=== PATIENT | male | born 1995 | race Caucasian/White ===

== ENCOUNTER 2019-08-08 01:30 | Outpatient (CLI) | payer OTHER | END 2019-08-08 01:31 | disposition short-term general hospital (02) | LOC: EMS 01:30 | PROVIDERS: ATTEND Surgery | DX: R07.89 Other chest pain (principal) | CPT/HCPCS: A0425; A0433 ==

== ENCOUNTER 2019-09-26 17:22 | Emergency (ER) | payer OTHER ==
--- NOTE | 2019-09-26 19:29 | ED Physician Documentation ---
PD HPI URI - Stated complaint Stated Complaint: DEHYDRATION - Chief complaint Chief Complaint: Fever - History obtained from History obtained from: Patient - History of Present Illness Timing - onset: How many days ago (3-4) Timing duration: Days (3-4) Timing details: Gradual onset, Still present Associated symptoms: Fever, Chills, Sore throat, Swollen nodes, NVD (nausea and vomiting without diarrhea.). No: Nasal congestion, Dry cough Contributing factors: No: Sick contact, Travel, Immunocompromised Similar symptoms before: Has not had sx before Recently seen: Clinic (went to walk in clinic and had negative strep test, but seemed ill, fever and tachycardic, so told to go to ER for "IV fluids and meds".) Review of Systems Constitutional: reports: Fever, Chills, Myalgias Nose: denies: Rhinorrhea / runny nose, Congestion Throat: reports: Sore throat, Swollen tonsils Cardiac: denies: Chest pain / pressure Respiratory: denies: Dyspnea, Cough GI: reports: Nausea, Vomiting. denies: Abdominal Pain, Diarrhea Skin: denies: Rash Neurologic: reports: Generalized weakness. denies: Headache PD PAST MEDICAL HISTORY - Past Medical History Past Medical History: No - Past Surgical History Past Surgical History: No - Present Medications Home Medications: Ambulatory Orders Medication Instructions Recorded Confirmed Cephalexin [Keflex] 500 mg PO TID #20 capsule 09/26/19 Hydrocodone/Acetaminophen 1 each PO Q6H PRN #10 tablet 09/26/19 [Hydrocodon-Acetaminophen 5-325] Lidocaine Viscous 2% [Xylocaine 5 ml PO Q4H PRN #100 ml 09/26/19 Viscous 2%] Ondansetron Odt [Zofran] 4 mg TL Q6H PRN #10 tablet 09/26/19 dexAMETHasone [Decadron] 4 mg PO DAILY #5 tablet 09/26/19 - Allergies Allergies/Adverse Reactions: Allergies Allergy/AdvReac Type Severity Reaction Status Date / Time No Known Drug Allergies Allergy Verified 09/26/19 17:38 - Social History Does the pt smoke?: No Smoking Status: Never smoker Does the pt drink ETOH?: No Does the pt have substance abuse?: No - Immunizations Immunizations are current?: Yes - POLST Patient has POLST: No PD ED PE NORMAL - Vitals Vital signs reviewed: Yes (tachycardic and high fever) - General General: Alert and oriented X 3, Well developed/nourished - HEENT HEENT: Ears normal, Dentition benign. No: Moist mucous membranes, Pharynx benign (redness with exudate at tonsils, more to the left, with some left peritonsillar edema, no bulging and without fluctant feeling. ) - Neck Neck: Supple, no meningeal sign, Other (anterior tender adenopathy) - Cardiac Cardiac: No murmur. No: RRR (tachycardic) - Respiratory Respiratory: Clear bilaterally - Abdomen Abdomen: Soft, Non tender, No organomegaly - Derm Derm: Normal color, Warm and dry - Neuro Neuro: Alert and oriented X 3, No motor deficit, Normal speech Results - Vitals Vitals: Vital Signs - 24 hr 09/26/19 09/26/19 17:35 21:39 Temperature 39.2 C H 37.8 C H Heart Rate 116 H 94 Respiratory 18 18 Rate Blood Pressure 121/60 128/55 L O2 Saturation 98 96 Oxygen O2 Source Room air PD MEDICAL DECISION MAKING - ED course Complexity details: re-evaluated patient (feeling much better after fluids and meds. Able to swallow okay. Feels swelling is decreased. ), considered differential (reported negative strep test this afternoon at walk in clinic. However clinically has peritonsillitis with redness/swelling/exudate, so will treat with IV fluids/steroids/abx. ), d/w patient Departure - Departure Disposition: 01 Home, Self Care Clinical Impression: Dehydration, Peritonsillitis Nausea and vomiting Qualifiers: Vomiting type: unspecified Vomiting Intractability: non-intractable Qualified Code(s): R11.2 - Nausea with vomiting, unspecified Pharyngitis Qualifiers: Pharyngitis/tonsillitis etiology: unspecified etiology Qualified Code(s): J02.9 - Acute pharyngitis, unspecified Condition: Stable Record reviewed to determine appropriate education?: Yes Instructions: ED Nausea Vomiting Prescriptions: Cephalexin [Keflex] 500 mg PO TID #20 capsule dexAMETHasone [Decadron] 4 mg PO DAILY #5 tablet Hydrocodone/Acetaminophen [Hydrocodon-Acetaminophen 5-325] 1 each PO Q6H PRN #10 tablet PRN Reason: pain Lidocaine Viscous 2% [Xylocaine Viscous 2%] 5 ml PO Q4H PRN #100 ml PRN Reason: Pain Ondansetron Odt [Zofran] 4 mg TL Q6H PRN #10 tablet PRN Reason: Nausea / Vomiting Comments: Tylenol or ibuprofen for fevers and pains. Stay well-hydrated. Add hydrocodone if needed for worse pain. Ondansetron if needed for nausea. Decadron steroid for inflammation daily for 5 more days. Cephalexin antibiotic as directed for a week as the throat looks more like a bacterial infection. Recheck if not improving well over the next day or 2 and return sooner if worse. Forms: Activity restrictions Discharge Date/Time: 09/26/19 21:51
[2019-09-26] MEDS ORDERED: SODIUM CHLORIDE 0.9% 1,000 ML IV ONE ×2 (19:41→19:42)
[2019-09-26] MEDS ORDERED: KETOROLAC 30 MG/ML VIAL IVP STA (19:42)
[2019-09-26] MEDS ORDERED: MAG HYDROX/AL HYDROX/SIMETH 30 ML UDC PO STA (19:42)
[2019-09-26] MEDS ORDERED: ONDANSETRON 4 MG/2 ML VIAL IVP STA (19:42)
[2019-09-26] MEDS ORDERED: LIDOCAINE VISCOUS 2% 15 ML UDC MM STA (19:42)
[2019-09-26] MEDS ORDERED: DEXAMETHASONE 10 MG/ML VIAL IVP STA (19:42)
[2019-09-26] MEDS ORDERED: ACETAMINOPHEN 325 MG TABLET PO STA (19:43)
[2019-09-26] MEDS ORDERED: ONDANSETRON ODT 4 MG Prepack 2 TL PRN (20:56)
[2019-09-26 21:40] VITALS: BP 128/55
== END 2019-09-26 21:51 | disposition home or self-care (01) ==
LOC: ED 17:22
DX: J02.9 Acute pharyngitis, unspecified (principal); E86.0 Dehydration; R11.2 Nausea with vomiting, unspecified
CPT/HCPCS: 96361; 96374; 99284; A9270

== ENCOUNTER 2019-10-30 14:43 | Emergency (ER) | payer OTHER ==
[2019-10-30] MEDS ORDERED: SUMAtriptan 6 MG/0.5 ML VIAL SUBQ STA (15:56)
--- NOTE | 2019-10-30 16:01 | ED Physician Documentation ---
History of Present Illness - Stated complaint Stated Complaint: SINGH - Chief complaint Chief Complaint: Neuro - History obtained from History obtained from: Patient - History of Present Illness Pain level max: 6 Pain level now: 4 - Additonal information Additional information: 24-year-old male states that for the past 2 months, he has had intermittent headaches. He states that he was seen at [facility] and had a negative head CT. No fevers. No chills. No vomiting. No focal neurological deficits. No vision changes. Normally improves with Motrin. [place] told him to come to the emergency department. His doctor did not call the emergency department, nor was any paper work sent with the patient. Headache is worse with light and sound. Review of Systems Ten Systems: 10 systems reviewed and negative Constitutional: denies: Fever, Chills Nose: denies: Rhinorrhea / runny nose, Congestion GI: denies: Vomiting Skin: denies: Rash Musculoskeletal: denies: Neck pain, Back pain Neurologic: denies: Focal weakness, Numbness, Confused, Altered mental status PD PAST MEDICAL HISTORY - Past Medical History Past Medical History: Yes Cardiovascular: Other Respiratory: None Endocrine/Autoimmune: None GI: None : None HEENT: None Psych: None Musculoskeletal: None Derm: None Other Past Medical History: pericarditis 08/05 - Past Surgical History Past Surgical History: No - Present Medications Home Medications: Ambulatory Orders Medication Instructions Recorded Confirmed Cephalexin [Keflex] 500 mg PO TID #20 capsule 09/26/19 Hydrocodone/Acetaminophen 1 each PO Q6H PRN #10 tablet 09/26/19 [Hydrocodon-Acetaminophen 5-325] Lidocaine Viscous 2% [Xylocaine 5 ml PO Q4H PRN #100 ml 09/26/19 Viscous 2%] Ondansetron Odt [Zofran] 4 mg TL Q6H PRN #10 tablet 09/26/19 dexAMETHasone [Decadron] 4 mg PO DAILY #5 tablet 09/26/19 SUMAtriptan [Imitrex] 25 mg PO ONCE PRN #9 tablet 10/30/19 - Allergies Allergies/Adverse Reactions: Allergies Allergy/AdvReac Type Severity Reaction Status Date / Time No Known Drug Allergies Allergy Verified 10/30/19 14:50 - Social History Does the pt smoke?: No Smoking Status: Never smoker Does the pt drink ETOH?: No Does the pt have substance abuse?: No - Immunizations Immunizations are current?: Yes - POLST Patient has POLST: No PD ED PE NORMAL - Vitals Vital signs reviewed: Yes - General General: Alert and oriented X 3, No acute distress - HEENT HEENT: Atraumatic, PERRL, EOMI, Ears normal, Moist mucous membranes, Pharynx benign - Neck Neck: Supple, no meningeal sign - Cardiac Cardiac: RRR, Strong equal pulses - Respiratory Respiratory: No respiratory distress, Clear bilaterally - Abdomen Abdomen: Soft, Non tender, Non distended - Derm Derm: Warm and dry - Extremities Extremities: No edema - Neuro Neuro: Alert and oriented X 3, laser cutter 2-12 intact, No motor deficit, No sensory deficit, Normal speech, Other (Normal cerebellar test) Eye Opening: Spontaneous Motor: Obeys Commands Verbal: Oriented GCS Score: 15 - Psych Psych: Normal mood, Normal affect Results - Vitals Vitals: Vital Signs - 24 hr 10/30/19 10/30/19 10/30/19 14:50 16:21 16:48 Temperature 36.4 C L Heart Rate 73 77 70 Respiratory 16 13 15 Rate Blood Pressure 107/64 121/75 O2 Saturation 99 100 100 Oxygen O2 Source Room air PD MEDICAL DECISION MAKING - ED course Complexity details: reviewed results, re-evaluated patient, considered differential, d/w patient ED course: Patient with intermittent headaches for the past 2 months[address] Has had a CT scan at [facility]. I tried multiple times to get a hold of his primary care provider to determine why he was sent to the emergency department today. There was no call back received from the clinics, or the [employer] [place]. Multiple different numbers called. He has no paperwork with him to explain why he was se nt to the emergency department. We will prescribe Imitrex for home and have him follow-up with his doctor. Patient counseled regarding signs and symptoms for which I believe and urgent re-evaluation would be necessary. Patient with good understanding of and agreement to plan and is comfortable going home at this time This document was made in part using voice recognition software. While efforts are made to proofread this document, sound alike and grammatical errors may occur. Departure - Departure Disposition: 01 Home, Self Care Clinical Impression: Headache Qualifiers: Headache type: unspecified Headache chronicity pattern: acute headache Intractability: not intractable Qualified Code(s): R51 - Headache Condition: Good Instructions: ED Cephalgia Unspecified Follow-Up: SANJUANITA PALAFOX MD [Primary Care Provider] - Tomorrow Prescriptions: SUMAtriptan [Imitrex] 25 mg PO ONCE PRN #9 tablet PRN Reason: headache Comments: Follow up with your doctor for further care. They may want to order an MRI of your head and or a neurology consult for your headaches. Discharge Date/Time: 10/30/19 16:56
[2019-10-30] MEDS ORDERED: SUMAtriptan 25 MG TABLET PO STA (16:14)
[2019-10-30 16:48] VITALS: BP 121/75
== END 2019-10-30 16:56 | disposition home or self-care (01) ==
LOC: ED 14:43
DX: R51 Headache (principal)
CPT/HCPCS: 99283; 99284; A9270; 80053; 83690; 85025

== ENCOUNTER 2020-07-23 13:54 | Outpatient (CLI) | payer OTHER ==
--- NOTE | 2020-07-23 16:54 | SLEEP CARE CONSULTATION ---
Information from patient questionnaire entered by Cristela Crowder. I have reviewed and concur with the information entered by Cristela Crowder. This document represents the service I personally performed and the decisions made by me, Priti Awad MD, [facility]. History of Present Illness Service Date and Time: 07/23/2020 1354 Reason for Visit: New patient Chief Complaint: reports: Insomnia, Unrefreshed sleep, Snoring, Excessive daytime sleepiness, Observed pauses in breathing, Fatigue, Frequent awakenings at night Date of Onset: 1 YEAR Usual bedtime: 2129 Time it takes to fall asleep: 5.5 hours Snores at night: Yes (sometimes) Number of times waking at night: a lot Reasons for waking at night: reports: Gasping for air Toss, Turn, or Twitch while sleeping: Yes Recalls having dreams: Yes Usually gets out of bed at: 0630 or oversleep Feels refreshed in the morning: No Morning headache: Yes Sleepy or fatigued during the day: Yes Ever fallen asleep while driving: No Takes day naps: Yes Dreams during day naps: No Prior sleep studies: Yes Year and Where: [place], [place] Additional HPI information: I had the pleasure of seeing Mr. Washburn today regarding the possibility of him having a sleep disorder. As you know, he is a 24-year-old gentleman who complains of insomnia for at least 1 year. The patient tells me that he normally goes to bed around 9:30 pm, and it takes him approximately 5 6 hours to fall asleep. He took trazodone and melatonin but they did not help. He has been told that he snores loudly and irregularly at night. He has also been observed to stop breathing in his sleep. He normally sleeps alone. He can recall waking up frequently during the night. Most of the time he wakes up because of gasping. There is a lot of tossing and turning in his sleep. He has somniloquy (sleep talking) but not somnambulism (sleep walking). Generally he can recall having dreams. In the morning he usually gets up out of the bed around 6:30 a.m. not feeling refreshed nor rested. On weekends, he gets up at noon. He usually does have a morning headache. During the day he complains of feeling sleepy and fatigued. His score on [place] Sleepiness Scale is 9 out of 24. He has never fallen asleep while driving nor has had any accident due to sleepiness. He usually takes naps during the day. Upon falling asleep during the day he denies having vivid dreams. He has had sleep paralysis. He reports having impaired concentration during the day. Subjective Initial [place] Sleepiness Scale score: 9 (in 2019) Past Medical History Past Medical History: reports: Coronary Heart Disease, Anxiety Social History The patient's occupation is active . Patient is Single and lives in [place]. Have you smoked in the past 12 months: Yes Alcohol use: Yes Alcohol amount and frequency: 3/week Caffeine use: No Allergies and Home Medications Drug allergies reviewed: Yes (NKDA) Home medication list reviewed: Yes (trazodone and melatonin (not taking)) Review of Systems Cardiovascular: reports: chest pain Respiratory: reports: shortness of breath Gastrointestinal: denies: heartburn, difficulty swallowing, nausea, vomitting, diarrhea, abdominal pain, other Urinary: reports: frequency Neurological: reports: headaches Psychiatric: reports: anxiety Ear/Nose/Throat: reports: tonsillectomy Endocrine: reports: sluggishness Musculoskeletal: reports: neck pain, back pain Immunologic: denies: sneezing, rash, itching, allergies to food or environment, other Physical Exam Vital signs obtained and entered by: Detailed physical exam was not performed to comply with the COVID precautns Height: 5 ft 8 in Weight: 235 lb Body Mass Index: 35.7 BMI Classification: Obese Impression and Plan IMPRESSION: 1. Obstructive Sleep Apnea-Hypopnea Syndrome, as suggested by history of loud and irregular snoring, observed cessation of breath while asleep, frequent awakenings during the night, unrefreshed sleep, cognitive impairment, and daytime hypersomnolence. Narrow oropharynx and obesity are common predisposing factors for obstructive sleep apnea-hypopnea syndrome. Pathophysiology of sleep-disordered breathing was discussed. I recommend proceeding to polysomnography to confirm the diagnosis and to assess severity. If he has significant sleep disordered breathing, a manual CPAP titration study will also be performed to find the optimal treatment pressure. I informed the patient of what the sleep studies involve and after some discussion, he agreed to proceed. 2. 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 His true circadian rhythm is that of the weekend where her falls asleep around 3 4 a.m. and gets up around noon. Because he is leaving the [place] soon and will be relocating across time zones, I will not have him adjust the his sleep-wake schedule at this time. Plan: 1. Schedule polysomnography + manual CPAP titration study. Zolpidem 10 mg prescribed for the sleep study. 2. Avoid long distance driving or when feeling sleepy. 3. Avoid alcohol, sedative and muscle relaxant around bedtime. 4. Attempt to lose weight. 5. Return in 1 to 2 weeks after the study to discuss results and initiate therapy. Visit Type: In Office Time Spent with Patient (minutes): 15 Provider Statement: I spent 100% of the Face to Face Visit with the patient with greater than 50% spent counseling the patient and coordination of care.
== END 2020-07-23 13:55 | disposition home or self-care (01) ==
LOC: SC 13:54
PROVIDERS: ATTEND Internal Medicine Pulmonary Disease
DX: R06.83 Snoring (principal); R06.81 Apnea, not elsewhere classified; G47.8 Other sleep disorders; R41.89 Other symptoms and signs involving cognitive functions and awareness; G47.10 Hypersomnia, unspecified; G47.21 Circadian rhythm sleep disorder, delayed sleep phase type; E66.9 Obesity, unspecified; Z68.35 Body mass index [BMI] 35.0-35.9, adult
CPT/HCPCS: 99203; 99212